=== PATIENT | female | born 2000 | race Caucasian/White ===

== ENCOUNTER 2023-05-04 20:19 | Emergency (ER) | payer OTHER ==
[2023-05-04 20:35] VITALS: TEMP 98.6
--- NOTE | 2023-05-04 20:41 | ERPHSYRPT ---
- History of Present Illness Time Seen by Provider: 05/04/23 20:27 Historian: patient Exam Limitations: no limitations Physician History: Pt states she has had intermittent sharp/crampy generalized abdominal pain for the past 24 hours with episodes lasting up to 1 second. Pt also states she has had vomiting daily for the past 8 weeks; states she is 14 weeks . Last BM was today - diarrhea without blood. Pt denies fever, chest pain, shortness of air. Pt states she is a (miscarriage at 17 weeks gestation in 2021). Allergies/Adverse Reactions: Sulfa (Sulfonamide Antibiotics) Allergy (Mild, Verified 05/04/23 20:28) Home Medications: Ondansetron ODT 4 MG [Zofran Odt 4 mg] 4 mg PO Q6-8HPRN PRN 05/04/23 [History] Pnv No.121/Iron/Folic Acid [ Multivitamin Tablet] 1 tablet PO DAILY 05/04/23 [History] - Review of Systems Constitutional: No Fever, No Chills Ears, Nose, & Throat: No Throat Pain Respiratory: No Dyspnea Cardiac: No Chest Pain Abdominal/Gastrointestinal: Abdominal Pain, Vomiting, Diarrhea Genitourinary Symptoms: No Dysuria Skin: No Rash Neurological: No Headache - Nursing Vital Signs Nursing Vital Signs: Initial Vital Signs Pulse Rate 63 05/04/23 20:32 Respiratory Rate 18 05/04/23 20:32 Blood Pressure 118/71 05/04/23 20:32 O2 Sat by Pulse Oximetry 97 05/04/23 20:32 Pain Scale Pain Intensity 2 - Physical Exam General Appearance: alert Eye Exam: PERRL/EOMI Ears, Nose, Throat Exam: pharynx normal Neck Exam: normal inspection Respiratory Exam: normal breath sounds Cardiovascular Exam: normal heart sounds Gastrointestinal/Abdomen Exam: soft, normal bowel sounds Back Exam: normal inspection Extremity Exam: No pedal edema Neurologic Exam: alert, cooperative Skin Exam: warm, dry SpO2 Interpretation: normal SpO2: 97 O2 Delivery: Room Air - Radiology Ultrasound Exam Pelvis Ultrasound: Other (tech report: normal fetus; NB=[id number].) Ordered Tests: Active Orders 24 hr Category Date Time Status Heart Tones-ED STAT Care 05/04/23 20:58 Active IV Insertion STAT Care 05/04/23 20:40 Active OB >14 WKS 1st GESTATION [US] Stat Exams 05/04/23 21:41 Taken AMYLASE Stat Lab 05/04/23 20:52 Completed CBC W DIFF Stat Lab 05/04/23 20:38 Completed CMP Stat Lab 05/04/23 20:52 Completed CULTURE,URINE Stat Lab 05/04/23 20:40 Received LIPASE Stat Lab 05/04/23 20:52 Completed UA W/RFX UR CULTURE Stat Lab 05/04/23 20:40 Completed Medication Summary Generic Name Dose Route Start Last Admin Trade Name Freq PRN Reason Stop Dose Admin Sodium Chloride 1,000 mls @ 100 mls/hr 05/04/23 20:45 05/04/23 20:43 Sodium Chloride 0.9% 1000 Ml IV 06/03/23 20:44 100 mls/hr .Q10H ALMA Administration Lab/Rad Data: Laboratory Result Diagrams 05/04/23 20:38 05/04/23 20:52 Laboratory Results 05/04/23 05/04/23 05/04/23 Range/Units 21:04 20:52 20:40 WBC (4.0-10.5) x10^3/uL RBC (4.1-5.4) x10^6/uL Hgb (12.0-16.0) g/dL Hct (35-47) % MCV (78-100) fL MCH (26-32) pg MCHC (32-36) g/dL RDW (11.5-14.0) % Plt Count (150-450) x10^3/uL MPV (7.5-11.0) fL Gran % (36.0-66.0) % Immature Gran % (Auto) (0.00-0.4) % Nucleat RBC Rel Count (0.00-0.1) % Eos # (Auto) (0-0.5) x10^3/uL Immature Gran # (Auto) (0.00-0.03) x10^3u/L Absolute Lymphs (auto) (1.0-4.6) x10^3/uL Absolute Monos (auto) (0.0-1.3) x10^3/uL Absolute Nucleated RBC (0.00-0.01) x10^3u/L Lymphocytes % (24.0-44.0) % Monocytes % (0.0-12.0) % Eosinophils % (0.00-5.0) % Basophils % (0.0-0.4) % Absolute Granulocytes (1.4-6.9) x10^3/uL Basophils # (0-0.4) x10^3/uL Sodium 139 (137-145) mmol/L Potassium 3.2 L (3.5-5.1) mmol/L Chloride 104 (98-107) mmol/L Carbon Dioxide 26 (22-30) mmol/L Anion Gap 11.0 (5-15) MEQ/L BUN 5 L (7-17) mg/dL Creatinine 0.50 L (0.52-1.04) mg/dL Estimated GFR > 60.0 ML/MIN Glucose 84 (74-106) mg/dL Calcium 9.1 (8.4-10.2) mg/dL Total Bilirubin 0.50 (0.2-1.3) mg/dL AST 18 (14-36) U/L ALT 14 (0-35) U/L Alkaline Phosphatase 45 (38-126) U/L Serum Total Protein 6.9 (6.3-8.2) g/dL Albumin 4.0 (3.5-5.0) g/dL Amylase 54 (30-110) U/L Lipase 24 (23-300) U/L Urine Color Dark Yellow A (Yellow) Urine Appearance Clear (Clear) Urine pH 5.5 (4.6-8.0) Ur Specific [place] 1.025 (1.005-1.030) Urine Protein 30 (Negative) Urine Glucose (UA) Negative (Negative) mg/dL Urine Ketones 15 A (Negative) Urine Blood Negative (Negative) Urine Nitrite Negative (Negative) Urine Bilirubin Small A (Negative) Urine Urobilinogen 1.0 A (0.2) mg/dL Ur Leukocyte Esterase Trace A (Negative) U Hyaline Cast (Auto) 3-5 A (0-2) /LPF Urine Microscopic RBC 0-2 (0-5) /HPF Urine Microscopic WBC 3-5 (0-5) /HPF Ur Epithelial Cells Few (None Seen) /HPF Urine Bacteria Rare A (None Seen) /HPF Urine Culture Reflexed YES (NO) Chlamydia DNA Probe NOT DETECTED (NEGATIVE) N.gonorrhoeae DNA Probe NOT DETECTED (NEGATIVE) 05/04/23 Range/Units 20:38 WBC 14.3 H (4.0-10.5) x10^3/uL RBC 3.87 L (4.1-5.4) x10^6/uL Hgb 12.4 (12.0-16.0) g/dL Hct 36.2 (35-47) % MCV 93.5 (78-100) fL MCH 32.0 (26-32) pg MCHC 34.3 (32-36) g/dL RDW 11.7 (11.5-14.0) % Plt Count 290 (150-450) x10^3/uL MPV 9.4 (7.5-11.0) fL Gran % 76.2 H (36.0-66.0) % Immature Gran % (Auto) 0.4 (0.00-0.4) % Nucleat RBC Rel Count 0.0 (0.00-0.1) % Eos # (Auto) 0.06 (0-0.5) x10^3/uL Immature Gran # (Auto) 0.06 H (0.00-0.03) x10^3u/L Absolute Lymphs (auto) 2.27 (1.0-4.6) x10^3/uL Absolute Monos (auto) 0.97 (0.0-1.3) x10^3/uL Absolute Nucleated RBC 0.00 (0.00-0.01) x10^3u/L Lymphocytes % 15.9 L (24.0-44.0) % Monocytes % 6.8 (0.0-12.0) % Eosinophils % 0.4 (0.00-5.0) % Basophils % 0.3 (0.0-0.4) % Absolute Granulocytes 10.89 H (1.4-6.9) x10^3/uL Basophils # 0.04 (0-0.4) x10^3/uL Sodium (137-145) mmol/L Potassium (3.5-5.1) mmol/L Chloride (98-107) mmol/L Carbon Dioxide (22-30) mmol/L Anion Gap (5-15) MEQ/L BUN (7-17) mg/dL Creatinine (0.52-1.04) mg/dL Estimated GFR ML/MIN Glucose (74-106) mg/dL Calcium (8.4-10.2) mg/dL Total Bilirubin (0.2-1.3) mg/dL AST (14-36) U/L ALT (0-35) U/L Alkaline Phosphatase (38-126) U/L Serum Total Protein (6.3-8.2) g/dL Albumin (3.5-5.0) g/dL Amylase (30-110) U/L Lipase (23-300) U/L Urine Color (Yellow) Urine Appearance (Clear) Urine pH (4.6-8.0) Ur Specific [place] (1.005-1.030) Urine Protein (Negative) Urine Glucose (UA) (Negative) mg/dL Urine Ketones (Negative) Urine Blood (Negative) Urine Nitrite (Negative) Urine Bilirubin (Negative) Urine Urobilinogen (0.2) mg/dL Ur Leukocyte Esterase (Negative) U Hyaline Cast (Auto) (0-2) /LPF Urine Microscopic RBC (0-5) /HPF Urine Microscopic WBC (0-5) /HPF Ur Epithelial Cells (None Seen) /HPF Urine Bacteria (None Seen) /HPF Urine Culture Reflexed (NO) Chlamydia DNA Probe (NEGATIVE) N.gonorrhoeae DNA Probe (NEGATIVE) - Progress Progress: unchanged Counseled pt/family regarding: lab results, diagnosis, need for follow-up Medical Desision Making - Diagnostic Testing Diagnostic test were ordered, analyzed, and reviewed by me: Yes Radiological Interpretation: Other (tech report for ultrasound) - Departure Departure Disposition: Home Clinical Impression: Abdominal pain, Condition: Stable Critical Care Time: No Referrals: DOCTOR,NO FAMILY [Primary Care Provider] - Follow up/PCP as directed Instructions: Severe Abdominal Pain, Adult (DC) Additional Instructions: Follow up with [facility] doctor tomorrow.
[2023-05-04] MEDS ORDERED: Sodium Chloride 0.9% 1000 ML 1,000 ML ONE (20:42)
[2023-05-04] MEDS ORDERED: Sodium Chloride 0.9% 1000 ML 1,000 ML IV SCH (20:45)
[2023-05-04 20:57] LABS: Absolute Neutrophil Ct (ANC) 10.89 x10^3/uL (1.4-6.9); BASOPHIL % 0.3 % (0.0-0.4); Basophil (Absolute #) 0.04 x10^3/uL (0-0.4); Eosinophil % 0.4 % (0.00-5.0); Eosinophil (Absolute #) 0.06 x10^3/uL (0-0.5); Hematocrit 36.2 % (35-47); Hemoglobin 12.4 g/dL (12.0-16.0); IMMATURE GRAN # 0.06 x10^3u/L (0.00-0.03); IMMATURE GRAN % 0.4 % (0.00-0.4); Lymphocyte (Absolute #) 2.27 x10^3/uL (1.0-4.6); Lymphocytes % 15.9 % (24.0-44.0); Mean Cell Volume 93.5 fL (78-100); Mean Corpuscular Hgb Concent. 34.3 g/dL (32-36); Mean Platelet Volume 9.4 fL (7.5-11.0); Monocyte (Absolute #) 0.97 x10^3/uL (0.0-1.3); Monocytes % 6.8 % (0.0-12.0); Neutrophil % 76.2 % (36.0-66.0); Platelet Count 290 x10^3/uL (150-450); Red Blood Count 3.87 x10^6/uL (4.1-5.4); Red Cell Distribution Width 11.7 % (11.5-14.0); White Blood Count 14.3 x10^3/uL (4.0-10.5)
[2023-05-04 21:12] LABS: Appearance Clear (Clear); Bacteria Rare /HPF (None Seen); Bilirubin Small (Negative); Blood Negative (Negative); Epithelial Cells Few /HPF (None Seen); Glucose, Urine Negative (Negative); Ketones 15 (Negative); Leukocyte Esterase Trace (Negative); Nitrite Negative (Negative); Ph 5.5 (4.6-8.0); Protein,Urine Dip 30 (Negative); RBC 0-2 /HPF (0-5); Specific Gravity 1.025 (1.005-1.030)
[2023-05-04 21:13] LABS: ADD URINE CULTURE? YES (NO)
[2023-05-04 21:18] LABS: ALKALINE PHOSPHATASE 45 U/L (38-126); AMYLASE 54 U/L (30-110); BLOOD UREA NITROGEN 5 mg/dL (7-17); CHLORIDE 104 mmol/L (98-107); Calcium 9.1 mg/dL (8.4-10.2); Carbon Dioxide 26 mmol/L (22-30); EST GLOMERULAR FILTRATION RATE > 60.0 ML/MIN; Glucose 84 mg/dL (74-106); LIPASE 24 U/L (23-300); Potassium 3.2 mmol/L (3.5-5.1); SGOT/AST 18 U/L (14-36); SGPT/ALT 14 U/L (0-35); SODIUM 139 mmol/L (137-145); Total Protein 6.9 g/dL (6.3-8.2)
[2023-05-04 22:35] LABS: CHLAMYDIA DNA NOT DETECTED (NEGATIVE); GC DNA Probe NOT DETECTED (NEGATIVE)
[2023-05-04 22:38] VITALS: O2SAT 97
[2023-05-04] MEDS ORDERED: Klor Con PO ONE ×2 (22:53→23:00)
[2023-05-04] MEDS ORDERED: PHENERGAN 25 MG PO ONE (22:59)
[2023-05-04] MEDS ORDERED: PHENERGAN 25 MG ONE (23:00)
[2023-05-04 23:04] VITALS: BP 104/57; PULSE 87; RESP 16
--- NOTE | 2023-05-05 09:29 | XRAY ---
Indication: Pain. Two-dimensional OB ultrasound performed. Comparison: None Single intrauterine with heart rate 146 BPM. measurements obtained with mean gestational age 14 weeks 2 days. Posterior placenta without abruption/previa. Impression: Single viable intrauterine measuring 14 weeks 2 days. Expected date confinement is October 31, 2023. No acute findings. Comment: Preliminary report was given.
== END 2023-05-04 23:12 | disposition home or self-care (01) ==
LOC: ED 20:19
DX: R10.84 Generalized abdominal pain (principal); O21.9 Vomiting of pregnancy, unspecified; R19.7 Diarrhea, unspecified; Z3A.14 14 weeks gestation of pregnancy
CPT/HCPCS: 36000; 36415; 76805; 80053; 81001; 82150; 83690; 85025; 87086; 87491; 87591; 99284; A9270-GY

== ENCOUNTER 2023-11-02 08:08 | Inpatient (IN) | payer OTHER ==
[2023-11-02] MEDS ORDERED: TYLENOL EXTRA STRENGTH 500 MG PO PRN (20:00)
[2023-11-02 20:39] LABS: Absolute Neutrophil Ct (ANC) 10.86 x10^3/uL (1.4-6.9); BASOPHIL % 0.5 % (0.0-0.4); Basophil (Absolute #) 0.07 x10^3/uL (0-0.4); Eosinophil % 0.7 % (0.00-5.0); Eosinophil (Absolute #) 0.11 x10^3/uL (0-0.5); Hematocrit 37.3 % (35-47); Hemoglobin 12.8 g/dL (12.0-16.0); IMMATURE GRAN # 0.47 x10^3u/L (0.00-0.03); Lymphocyte (Absolute #) 2.76 x10^3/uL (1.0-4.6); Lymphocytes % 17.9 % (24.0-44.0); Mean Cell Volume 94.2 fL (78-100); Mean Corpuscular Hemoglobin 32.3 pg (26-32); Mean Corpuscular Hgb Concent. 34.3 g/dL (32-36); Mean Platelet Volume 9.2 fL (7.5-11.0); Monocyte (Absolute #) 1.18 x10^3/uL (0.0-1.3); Monocytes % 7.6 % (0.0-12.0); Neutrophil % 70.3 % (36.0-66.0); Platelet Count 290 x10^3/uL (150-450); Red Blood Count 3.96 x10^6/uL (4.1-5.4); Red Cell Distribution Width 12.8 % (11.5-14.0); White Blood Count 15.5 x10^3/uL (4.0-10.5)
[2023-11-02 20:55] LABS: Amphetamine,Urine NEGATIVE (NEGATIVE); Barbiturate,Urine NEGATIVE (NEGATIVE); Benzodiazepine,Urine NEGATIVE (NEGATIVE); Cocaine,Urine NEGATIVE (NEGATIVE); Methadone,Urine NEGATIVE (NEGATIVE); Opiate,Urine NEGATIVE (NEGATIVE); PCP,Urine NEGATIVE (NEGATIVE); THC,Urine NEGATIVE (NEGATIVE)
[2023-11-02 20:59] LABS: Appearance Clear (Clear); Bacteria None Seen /HPF (None Seen); Bilirubin Negative (Negative); Blood Negative (Negative); Epithelial Cells Rare /HPF (None Seen); Glucose, Urine Negative (Negative); Hyaline Casts NONE SEEN /LPF (0-2); Ketones Negative (Negative); Leukocyte Esterase Negative (Negative); Nitrite Negative (Negative); Protein,Urine Dip Trace (Negative); RBC 0-2 /HPF (0-5)
[2023-11-02 21:01] LABS: ADD URINE CULTURE? NO (NO)
[2023-11-02 21:18] LABS: ABO TYPING O; Antibody Screen NEGATIVE (NEGATIVE); RH TYPING POSITIVE
[2023-11-03] MEDS ORDERED: Ephedrine Sulfate 50 MG/ML IV PRN (01:11)
[2023-11-03] MEDS: Zofran 4 MG/2 ML VIAL IV PRN (02:37)
[2023-11-03] MEDS: STADOL 2 MG IV PRN (02:37)
[2023-11-03] MEDS: Lactated Ringers 1,000 ML IV SCH (03:44)
[2023-11-03] MEDS: Lactated Ringers 1,000 ML IV ONE (05:16)
[2023-11-03] MEDS: FENTANYL 2 MCG-BUPIV 0.125%-NS 250 ML Epidur 250 ML EPIDURAL SCH (05:16)
[2023-11-03] MEDS ORDERED: PITOCIN 30 UNITS/ LR 500 ML 30 UNITS/500 ML PLAST..BAG IV SCH (06:00)
--- NOTE | 2023-11-03 08:48 | PCM.HP ---
History of Present Illness - Chief Complaint Chief Complaint: LABOR History of Present Illness: Idania JACOB is a 22 year old white female, at 40w2d gestational age who was admitted to L&D last night for cervical ripening in anticipation of induction of labor today. Her has been complicated by nicotine use and severe heartburn. She received 2 doses of Cytotec overnight and by 05:00 was unable to tolerate the discomfort and so requested epidural. The epidural was placed shortly before 07:00 and she reports good pain relief. I was called at 05:50 this morning and asked whether I wished to start pitocin. I was then also informed of frequent late decelerations of the heart tones. Upon further questioning, nursing staff did state that these were not recurrent lates and that there were both accelerations and there was normal variability. I have reviewed the monitor strips since her admission. Although there are times when there were breaks in the tracing, the heart rate pattern has been primarily Category 1 with occasions at Category 2. The areas of concern are episodic and are not clearly late decelerations. Objective: General: obese white female in no distress at this time Heart: RRR, no murmur (office exam yesterday) Lungs: CTA bilaterally (office exam yesterday) Abdomen: obese, soft, gravid, non-tender Cervix: 4-5cm, 80%, soft, posterior. The vertex is at -3 station. AROM performed - meconium fluid Extremities: no edema Assessment: 40w2d intrauterine now in active labor Plan: Continuous monitoring Pitocin augmentation as needed Pt has been counseled regarding FHR pattern and station - she understands that while we will continue to endeavor to achieve a vaginal delivery, if there are any further concerns about the FHR pattern or if there is failure to descend, then delivery may be necessary. Medications & Allergies Home Medications: Home Medication List Ondansetron ODT 4 MG [Zofran Odt 4 mg] 4 mg PO Q6-8HPRN PRN 05/04/23 [History Confirmed 11/02/23] Pnv No.121/Iron/Folic Acid [ Multivitamin Tablet] 1 tablet PO DAILY 05/04/23 [History Confirmed 11/02/23] Famotidine [Pepcid] 40 mg PO HS 11/02/23 [History Confirmed 11/02/23] Loratadine 10 mg [Claritin 10 mg] 10 mg PO DAILY 11/02/23 [History Confirmed 11/02/23] Nicotine 21 mg [Nicoderm CQ 21 MG] 21 mg TOP DAILY 11/02/23 [History Confirmed 11/02/23] Omeprazole 20 mg PO BID 11/02/23 [History Confirmed 11/02/23] Allergies/Adverse Reactions: Allergies Allergy/AdvReac Type Severity Reaction Status Date / Time Sulfa (Sulfonamide Allergy Mild Verified 11/02/23 20:49 Antibiotics) - Past Medical History Past Medical History: Yes Neurological History: No Pertinent History ENT History: No Pertinent History Cardiac History: No Pertinent History Respiratory History: Asthma Endocrine Medical History: No Pertinent History Musculoskelatal History: No Pertinent History GI Medical History: Hernia, Ulcer History: No Pertinent History Pyscho-Social History: Bipolar Reproductive Disorders: No Pertinent History Comment: hiatal hernia and stomach ulcer - Female History Expected Date of Delivery: 11/01/23 - Past Surgical History Past Surgical History: Yes Neuro Surgical History: No Pertinent History Cardiac History: No Pertinent History Respiratory Surgery: No Pertinent History GI Surgical History: Other Genitourinary Surgical Hx: No Pertinent History Musculskeletal Surgical Hx: Amputation Female Surgical History: No Pertinent History Other Surgical History: EGD scope 2019 - Social History Smoking Status: Current some day smoker How long have you smoked: 6 Exposure to second hand smoke: No Alcohol: None Drug Use: none - Social Determinants of Health Will the patient participate in the screening: Yes Do you worry about a steady place to live?: No Do you have any problems with any of the following?: No known problems In the past 12 months,have you had to go without utilities?: No Have you or anyone in your house had to go without enough: No Transportation Issues: No Has anyone in your support network made you feel unsafe?: No Does the patient want assistance with any of the above?: No - Physical Exam Vital Signs: Vital Signs - 24 hr Temp Pulse Resp BP BP Pulse Ox 11/03/23 07:00 94 H 22 106/59 98 11/03/23 06:00 98 F 89 113/59 99 11/03/23 05:00 98.3 F 91 H 98 04/12/24 04:00 73 20 99 11/03/23 03:00 72 20 121/58 97 11/03/23 02:00 20 11/03/23 01:00 97.3 F 86 20 100/57 99 11/03/23 00:00 20 11/02/23 23:00 20 11/02/23 22:00 86 20 117/58 98 11/02/23 21:09 97.6 F 88 122/59 11/02/23 21:00 97.6 F 88 20 11/02/23 20:00 97.6 F 88 20 122/59 Results - Labs Lab/Micro Results: Lab Results-Last 24 Hours 11/02/23 11/02/23 11/02/23 Range/Units 20:27 20:27 20:27 WBC 15.5 H (4.0-10.5) x10^3/uL RBC 3.96 L (4.1-5.4) x10^6/uL Hgb 12.8 (12.0-16.0) g/dL Hct 37.3 (35-47) % MCV 94.2 (78-100) fL MCH 32.3 H (26-32) pg MCHC 34.3 (32-36) g/dL RDW 12.8 (11.5-14.0) % Plt Count 290 (150-450) x10^3/uL MPV 9.2 (7.5-11.0) fL Gran % 70.3 H (36.0-66.0) % Immature Gran % (Auto) 3.0 H (0.00-0.4) % Nucleat RBC Rel Count 0.0 (0.00-0.1) % Eos # (Auto) 0.11 (0-0.5) x10^3/uL Immature Gran # (Auto) 0.47 H (0.00-0.03) x10^3u/L Absolute Lymphs (auto) 2.76 (1.0-4.6) x10^3/uL Absolute Monos (auto) 1.18 (0.0-1.3) x10^3/uL Absolute Nucleated RBC 0.00 (0.00-0.01) x10^3u/L Lymphocytes % 17.9 L (24.0-44.0) % Monocytes % 7.6 (0.0-12.0) % Eosinophils % 0.7 (0.00-5.0) % Basophils % 0.5 (0.0-0.4) % Absolute Granulocytes 10.86 H (1.4-6.9) x10^3/uL Basophils # 0.07 (0-0.4) x10^3/uL Urine Color (Yellow) Urine Appearance (Clear) Urine pH (4.6-8.0) Ur Specific [place] (1.005-1.030) Urine Protein (Negative) Urine Glucose (UA) (Negative) mg/dL Urine Ketones (Negative) Urine Blood (Negative) Urine Nitrite (Negative) Urine Bilirubin (Negative) Urine Urobilinogen (0.2) mg/dL Ur Leukocyte Esterase (Negative) U Hyaline Cast (Auto) (0-2) /LPF Urine Microscopic RBC (0-5) /HPF Urine Microscopic WBC (0-5) /HPF Ur Epithelial Cells (None Seen) /HPF Urine Bacteria (None Seen) /HPF Urine Culture Reflexed (NO) Urine Opiates Level NEGATIVE (NEGATIVE) Ur Methadone NEGATIVE (NEGATIVE) Urine Barbiturates NEGATIVE (NEGATIVE) Ur Phencyclidine (PCP) NEGATIVE (NEGATIVE) Urine Amphetamine NEGATIVE (NEGATIVE) U Benzodiazepine Level NEGATIVE (NEGATIVE) Urine Cocaine NEGATIVE (NEGATIVE) Urine Marijuana (THC) NEGATIVE (NEGATIVE) ABO Group O Rh Factor POSITIVE Antibody Screen NEGATIVE (NEGATIVE) 11/02/23 Range/Units 20:27 WBC (4.0-10.5) x10^3/uL RBC (4.1-5.4) x10^6/uL Hgb (12.0-16.0) g/dL Hct (35-47) % MCV (78-100) fL MCH (26-32) pg MCHC (32-36) g/dL RDW (11.5-14.0) % Plt Count (150-450) x10^3/uL MPV (7.5-11.0) fL Gran % (36.0-66.0) % Immature Gran % (Auto) (0.00-0.4) % Nucleat RBC Rel Count (0.00-0.1) % Eos # (Auto) (0-0.5) x10^3/uL Immature Gran # (Auto) (0.00-0.03) x10^3u/L Absolute Lymphs (auto) (1.0-4.6) x10^3/uL Absolute Monos (auto) (0.0-1.3) x10^3/uL Absolute Nucleated RBC (0.00-0.01) x10^3u/L Lymphocytes % (24.0-44.0) % Monocytes % (0.0-12.0) % Eosinophils % (0.00-5.0) % Basophils % (0.0-0.4) % Absolute Granulocytes (1.4-6.9) x10^3/uL Basophils # (0-0.4) x10^3/uL Urine Color Yellow (Yellow) Urine Appearance Clear (Clear) Urine pH 6.0 (4.6-8.0) Ur Specific [place] 1.020 (1.005-1.030) Urine Protein Trace A (Negative) Urine Glucose (UA) Negative (Negative) mg/dL Urine Ketones Negative (Negative) Urine Blood Negative (Negative) Urine Nitrite Negative (Negative) Urine Bilirubin Negative (Negative) Urine Urobilinogen 1.0 A (0.2) mg/dL Ur Leukocyte Esterase Negative (Negative) U Hyaline Cast (Auto) NONE SEEN (0-2) /LPF Urine Microscopic RBC 0-2 (0-5) /HPF Urine Microscopic WBC 3-5 (0-5) /HPF Ur Epithelial Cells Rare (None Seen) /HPF Urine Bacteria None Seen (None Seen) /HPF Urine Culture Reflexed NO (NO) Urine Opiates Level (NEGATIVE) Ur Methadone (NEGATIVE) Urine Barbiturates (NEGATIVE) Ur Phencyclidine (PCP) (NEGATIVE) Urine Amphetamine (NEGATIVE) U Benzodiazepine Level (NEGATIVE) Urine Cocaine (NEGATIVE) Urine Marijuana (THC) (NEGATIVE) ABO Group Rh Factor Antibody Screen (NEGATIVE) - Other Procedures and Tests Respiratory Therapy 11/02/23 21:31 Smoking Cessation Education ONCE
[2023-11-03] MEDS ORDERED: XYLOCAINE 1% HCL 20 ML MDV IJ PRN (08:58)
[2023-11-03 11:06] LABS: Appearance Clear (Clear); Bacteria None Seen /HPF (None Seen); Bilirubin Negative (Negative); Blood Negative (Negative); Epithelial Cells None Seen /HPF (None Seen); Glucose, Urine Negative (Negative); Hyaline Casts NONE SEEN /LPF (0-2); Ketones Negative (Negative); Leukocyte Esterase Negative (Negative); Nitrite Negative (Negative); Protein,Urine Dip Trace (Negative); RBC 0-2 /HPF (0-5); Specific Gravity 1.015 (1.005-1.030); Urobilinogen 0.2 mg/dL (0.2); WBC 0-2 /HPF (0-5)
[2023-11-03 11:07] LABS: ADD URINE CULTURE? NO (NO)
[2023-11-03] MEDS: PITOCIN 30 UNITS/ LR 500 ML 30 UNITS/500 ML PLAST..BAG IV SCH (13:34)
[2023-11-03] MEDS ORDERED: SUBLIMAZE 100 MCG/2 ML ONE (15:20)
[2023-11-03] MEDS ORDERED: Reglan 10 MG/2 ML ONE (15:26)
[2023-11-03] MEDS: Pepcid 20 MG VIAL IV SCH (15:32)
[2023-11-03] MEDS: CEFAZOLIN 2 GM-D5W BAG** 2 GM/50 ML ML IV SCH (15:32)
[2023-11-03] MEDS: Reglan 10 MG/2 ML IV SCH (15:32)
[2023-11-03] MEDS: SOD CITRATE-CITRIC ACID SOLN PO SCH (15:32)
[2023-11-03 15:33] LABS: Hematocrit 38.4 % (35-47); Hemoglobin 12.8 g/dL (12.0-16.0); Mean Cell Volume 96.7 fL (78-100); Mean Corpuscular Hemoglobin 32.2 pg (26-32); Mean Corpuscular Hgb Concent. 33.3 g/dL (32-36); Mean Platelet Volume 9.1 fL (7.5-11.0); Platelet Count 260 x10^3/uL (150-450); Red Blood Count 3.97 x10^6/uL (4.1-5.4); Red Cell Distribution Width 12.9 % (11.5-14.0); White Blood Count 19.3 x10^3/uL (4.0-10.5)
[2023-11-03] MEDS ORDERED: DEXMEDETOMIDINE 80 MCG/20ML-NS IV ONE (15:49)
[2023-11-03 15:57] LABS: INR 0.88 (0.8-3.0); PROTIME 9.7 SECONDS (9.4-12.5); PTT 24.5 SECONDS (25.1-36.5)
[2023-11-03] MEDS ORDERED: DIPRIVAN 200 MG/20 ML IV ONE (16:00)
[2023-11-03] MEDS ORDERED: Quelicin Fliptop 200 MG/10 ML ONE (16:06)
[2023-11-03] MEDS ORDERED: PHENYLEPHRINE HCL ONE (16:07)
[2023-11-03] MEDS ORDERED: Pitocin 10 UNITS/ML ONE ×2 (16:09→16:33)
[2023-11-03] MEDS ORDERED: Lactated Ringers 1,000 ML IV ONE (16:32)
[2023-11-03] MEDS ORDERED: Ephedrine Sulfate 50 MG/ML ONE (16:36)
[2023-11-03] MEDS ORDERED: XYLOCAINE 2%/Epi 1:200000 20ML VIAL MPF ONE (16:49)
[2023-11-03] MEDS ORDERED: Marcaine 0.5%/Epinephrine 10 ML ONE (16:52)
[2023-11-03] MEDS ORDERED: Decadron 4 MG INJ ONE (17:13)
[2023-11-03] MEDS ORDERED: Zofran 4 MG/2 ML VIAL ONE (17:13)
[2023-11-03] MEDS ORDERED: TORAdol 30 mg Injection ONE (17:29)
[2023-11-03] MEDS ORDERED: Nubain 10 MG/ML IV PRN (17:37)
[2023-11-03] MEDS ORDERED: Zofran 4 MG/2 ML VIAL IV PRN (17:37)
[2023-11-03] MEDS ORDERED: DEMEROL 50 MG IV PRN ×2 (17:37)
[2023-11-03] MEDS: Dextrose 5%-Lr IV Solution 1000 ML 1,000 ML IV SCH (19:55)
[2023-11-03] MEDS: VENTOLIN COMMON CANISTER IH PRN (20:41)
[2023-11-03] MEDS: PERCOCET TABLET 5/325MG PO PRN (20:46)
[2023-11-03] MEDS: TORAdol 30 mg Injection IV PRN (23:06)
[2023-11-04] MEDS: Mylicon 80MG PO PRN (02:47)
[2023-11-04 06:25] LABS: Absolute Neutrophil Ct (ANC) 22.47 x10^3/uL (1.4-6.9); BASOPHIL % 0.3 % (0.0-0.4); Basophil (Absolute #) 0.08 x10^3/uL (0-0.4); Eosinophil (Absolute #) 0.01 x10^3/uL (0-0.5); Hematocrit 32.8 % (35-47); Hemoglobin 11.3 g/dL (12.0-16.0); IMMATURE GRAN # 0.37 x10^3u/L (0.00-0.03); IMMATURE GRAN % 1.4 % (0.00-0.4); Lymphocytes % 5.7 % (24.0-44.0); Mean Cell Volume 94.3 fL (78-100); Mean Corpuscular Hemoglobin 32.5 pg (26-32); Mean Corpuscular Hgb Concent. 34.5 g/dL (32-36); Mean Platelet Volume 9.6 fL (7.5-11.0); Monocyte (Absolute #) 1.67 x10^3/uL (0.0-1.3); Monocytes % 6.4 % (0.0-12.0); Neutrophil % 86.2 % (36.0-66.0); Platelet Count 282 x10^3/uL (150-450); Red Blood Count 3.48 x10^6/uL (4.1-5.4)
[2023-11-04 06:52] LABS: White Blood Count 26.1 x10^3/uL (4.0-10.5)
[2023-11-04] MEDS: Pepcid 20 MG PO SCH (07:33)
--- NOTE | 2023-11-04 09:39 | PCM.NOTE ---
Date and Time: 11/04/23932 Subjective Assessment: Subjective: Sore, but no other complaints. Normal lochia. Objective: Afebrile, VSS Abdomen: soft, obese, moderate tenderness. fundus not palpable Incision: C/D/I Extremities: no calf tenderness. Assessment: POD#1, status post primary LTCS for failure to progress and non-reassuring FHTs Elevated WBC's noted on am labs (lab review does show WBC's were also elevated at admission and preop) - there are no signs or symptoms of infection. Plan: Continue postop care per protocol and orders Recheck CBC tomorrow morning Objective Data Vital Signs: Vital Signs - 24 hr Temp Pulse Resp BP BP BP Pulse Ox 11/04/23 08:00 99 H 20 130/60 99 11/04/23 07:24 91 H 20 98 11/04/23 06:00 98.6 F 101 H 19 140/73 99 11/04/23 05:00 96 11/04/23 04:00 98 11/04/23 03:00 99 11/04/23 02:36 97.8 F 101 H 18 147/65 97 11/04/23 02:00 96 11/04/23 01:00 99 11/04/23 00:00 98 11/03/23 23:00 97 11/03/23 22:00 97.8 F 102 H 18 112/66 98 11/03/23 21:00 96 11/03/23 20:49 104 H 18 116/57 95 11/03/23 20:41 100 H 18 95 11/03/23 20:34 110 H 18 119/65 97 11/03/23 20:19 104 H 19 115/61 98 11/03/23 20:04 97 H 16 113/58 98 11/03/23 20:00 98 11/03/23 19:50 97.4 F 97 H 18 112/66 98 11/03/23 19:40 97.4 F 99 H 18 131/67 99 11/03/23 19:20 94 H 17 118/68 100 11/03/23 19:00 97.6 F 92 H 18 129/68 100 11/03/23 18:51 97.7 F 95 H 18 120/59 100 11/03/23 18:30 97.7 F 105 H 18 126/62 100 11/03/23 18:15 97.7 F 96 H 16 125/67 98 11/03/23 18:00 97.7 F 96 H 16 119/65 98 11/03/23 15:45 98.1 F 95 H 18 120/56 98 11/03/23 15:30 100 H 18 121/57 11/03/23 15:15 95 H 18 136/79 96 11/03/23 15:00 84 18 97 11/03/23 14:45 98.1 F 95 H 18 98 11/03/23 14:30 85 18 121/66 11/03/23 14:15 102 H 18 126/66 11/03/23 14:00 95 H 18 120/56 120/56 11/03/23 13:30 80 18 116/59 98 11/03/23 13:00 98.1 F 92 H 18 146/57 99 11/03/23 12:30 77 18 126/64 98 11/03/23 12:00 78 18 115/67 115/67 98 11/03/23 11:30 75 18 129/81 99 11/03/23 11:00 71 18 129/61 97 11/03/23 10:33 79 18 138/68 98 11/03/23 10:30 79 18 138/68 98 11/03/23 10:00 70 18 132/84 99 Pain Assessment - Last Documented Pain Intensity [Lower] 7 Pain Intensity 10 Pain Scale Used 0-10 Pain Scale Intake and Output: Intake & Output 11/01/23 11/02/23 11/03/23 11/04/23 11:59 11:59 11:59 11:59 Intake Total 2120 2430 Output Total 120 2513 Balance 1999 Weight 110.223 kg 110.223 kg Lab Results: Lab Results-Last 24 Hours 11/03/23 11/03/23 11/03/23 Range/Units 15:15 15:15 15:33 WBC 19.3 H (4.0-10.5) x10^3/uL RBC 3.97 L (4.1-5.4) x10^6/uL Hgb 12.8 (12.0-16.0) g/dL Hct 38.4 (35-47) % MCV 96.7 (78-100) fL MCH 32.2 H (26-32) pg MCHC 33.3 (32-36) g/dL RDW 12.9 (11.5-14.0) % Plt Count 260 (150-450) x10^3/uL MPV 9.1 (7.5-11.0) fL Gran % (36.0-66.0) % Immature Gran % (Auto) (0.00-0.4) % Nucleat RBC Rel Count (0.00-0.1) % Eos # (Auto) (0-0.5) x10^3/uL Immature Gran # (Auto) (0.00-0.03) x10^3u/L Absolute Lymphs (auto) (1.0-4.6) x10^3/uL Absolute Monos (auto) (0.0-1.3) x10^3/uL Absolute Nucleated RBC (0.00-0.01) x10^3u/L Lymphocytes % (24.0-44.0) % Monocytes % (0.0-12.0) % Eosinophils % (0.00-5.0) % Basophils % (0.0-0.4) % Absolute Granulocytes (1.4-6.9) x10^3/uL Basophils # (0-0.4) x10^3/uL PT 9.7 (9.4-12.5) SECONDS INR 0.88 (0.8-3.0) APTT 24.5 L (25.1-36.5) SECONDS Urine Color (Yellow) Urine Appearance (Clear) Urine pH (4.6-8.0) Ur Specific [place] (1.005-1.030) Urine Protein (Negative) Urine Glucose (UA) (Negative) mg/dL Urine Ketones (Negative) Urine Blood (Negative) Urine Nitrite (Negative) Urine Bilirubin (Negative) Urine Urobilinogen (0.2) mg/dL Ur Leukocyte Esterase (Negative) U Hyaline Cast (Auto) (0-2) /LPF Urine Microscopic RBC (0-5) /HPF Urine Microscopic WBC (0-5) /HPF Ur Epithelial Cells (None Seen) /HPF Urine Bacteria (None Seen) /HPF Urine Culture Reflexed (NO) Rh Factor POSITIVE 11/03/23 11/04/23 Range/Units Unknown 05:12 WBC 26.1 H* (4.0-10.5) x10^3/uL RBC 3.48 L (4.1-5.4) x10^6/uL Hgb 11.3 L (12.0-16.0) g/dL Hct 32.8 L (35-47) % MCV 94.3 (78-100) fL MCH 32.5 H (26-32) pg MCHC 34.5 (32-36) g/dL RDW 13.0 (11.5-14.0) % Plt Count 282 (150-450) x10^3/uL MPV 9.6 (7.5-11.0) fL Gran % 86.2 H (36.0-66.0) % Immature Gran % (Auto) 1.4 H (0.00-0.4) % Nucleat RBC Rel Count 0.0 (0.00-0.1) % Eos # (Auto) 0.01 (0-0.5) x10^3/uL Immature Gran # (Auto) 0.37 H (0.00-0.03) x10^3u/L Absolute Lymphs (auto) 1.50 (1.0-4.6) x10^3/uL Absolute Monos (auto) 1.67 H (0.0-1.3) x10^3/uL Absolute Nucleated RBC 0.00 (0.00-0.01) x10^3u/L Lymphocytes % 5.7 L (24.0-44.0) % Monocytes % 6.4 (0.0-12.0) % Eosinophils % 0.0 (0.00-5.0) % Basophils % 0.3 (0.0-0.4) % Absolute Granulocytes 22.47 H (1.4-6.9) x10^3/uL Basophils # 0.08 (0-0.4) x10^3/uL PT (9.4-12.5) SECONDS INR (0.8-3.0) APTT (25.1-36.5) SECONDS Urine Color Yellow (Yellow) Urine Appearance Clear (Clear) Urine pH 8.0 (4.6-8.0) Ur Specific [place] 1.015 (1.005-1.030) Urine Protein Trace A (Negative) Urine Glucose (UA) Negative (Negative) mg/dL Urine Ketones Negative (Negative) Urine Blood Negative (Negative) Urine Nitrite Negative (Negative) Urine Bilirubin Negative (Negative) Urine Urobilinogen 0.2 (0.2) mg/dL Ur Leukocyte Esterase Negative (Negative) U Hyaline Cast (Auto) NONE SEEN (0-2) /LPF Urine Microscopic RBC 0-2 (0-5) /HPF Urine Microscopic WBC 0-2 (0-5) /HPF Ur Epithelial Cells None Seen (None Seen) /HPF Urine Bacteria None Seen (None Seen) /HPF Urine Culture Reflexed NO (NO) Rh Factor Multi-Disciplinary Progress Notes: Multi-Disciplinary Progress Notes 11/03/23 16:39 Respiratory Note by Ayde Zhao Baby born via . Baby crying and was dusky.. HR 120. Baby dried and stimulated. at 1 minute is 8. Baby pinked up and continues to cry. at 5 minutes is 9. No RT interventions needed Initialized on 11/03/23 16:39 - END OF NOTE
[2023-11-04] MEDS: Protonix 40MG Tablet PO SCH (10:19)
[2023-11-04] MEDS: Docusate Sodium 100 MG PO SCH (10:19)
[2023-11-04] MEDS: FERREX 150 PO SCH (10:19)
[2023-11-04] MEDS: Adacel Vial IM ONE (10:23)
[2023-11-04 11:58] LABS: Slide Review 1 YES
[2023-11-04] MEDS: LANSINOH 40 GM TOP PRN (13:26)
[2023-11-04] MEDS: NORCO 5/325 MG PO PRN (22:10)
[2023-11-04] MEDS: MOTRIN 400 MG PO PRN (22:12)
[2023-11-04] MEDS: Dulcolax 10 MG SUPP PR PRN (23:48)
[2023-11-04] MEDS: TYLENOL EXTRA STRENGTH 500 MG PO PRN (23:48)
[2023-11-05 03:24] LABS: Absolute Neutrophil Ct (ANC) 13.93 x10^3/uL (1.4-6.9); BASOPHIL % 0.4 % (0.0-0.4); Basophil (Absolute #) 0.07 x10^3/uL (0-0.4); Eosinophil % 0.5 % (0.00-5.0); Hematocrit 31.5 % (35-47); Hemoglobin 10.6 g/dL (12.0-16.0); IMMATURE GRAN # 0.37 x10^3u/L (0.00-0.03); Lymphocyte (Absolute #) 3.27 x10^3/uL (1.0-4.6); Lymphocytes % 17.4 % (24.0-44.0); Mean Cell Volume 97.8 fL (78-100); Mean Corpuscular Hemoglobin 32.9 pg (26-32); Mean Corpuscular Hgb Concent. 33.7 g/dL (32-36); Mean Platelet Volume 9.1 fL (7.5-11.0); Monocyte (Absolute #) 1.05 x10^3/uL (0.0-1.3); Monocytes % 5.6 % (0.0-12.0); Neutrophil % 74.1 % (36.0-66.0); Platelet Count 238 x10^3/uL (150-450); Red Blood Count 3.22 x10^6/uL (4.1-5.4); Red Cell Distribution Width 13.3 % (11.5-14.0); White Blood Count 18.8 x10^3/uL (4.0-10.5)
[2023-11-05 09:16] VITALS: TEMP 98.1
--- NOTE | 2023-11-05 10:45 | PCM.DS ---
Discharge Summary Date of Admission: 11/03/23 08:08 Date of Discharge: Subjective: Idania Shirley is a 22 yo white female who was admitted on evening, November 02, 2023 for cervical ripening in anticipation of induction of labor. She did transition in spontaneous labor, but required pitocin augmentation after fa ilure to progress beyond 8cm. Pitocin did achieve a dilation to 9cm, however, had to discontinue due to non-reassuring heart tones. She was delivered by section without complication. Her course has been uncomplicated and she requests discharge home on postop day #2. An elevated WBC was noted at admission which did increase to 19 preoperatively and to 26 on the morning after surgery. The WBC has dropped to 18 today and she has had no signs or symptoms of infection throughout her hospitalization. She has no complaints at this time and states that she feels much better today than yesterday. She is ambulating without difficulty. Normal lochia. Objective: Afebrile, VSS Abdomen: soft, obese, mild tenderness. The fundus is not palpable. Incision: C/D/I Extremities: no calf tenderness. no edema. Assessment: POD #2, s/p primary LTCS Plan: OK for discharge home today Follow up later this week for staple removal Follow up in 6 weeks for exam Admitting Physician: HAWK WIGGINS MD Consults: Consults on Case 11/03/23 07:00 Notify Anesthesia Provider PRN 11/03/23 15:15 Notify Physician OF ADMISSION 11/03/23 17:38 Notify Anesthesia Provider PRN 11/04/23 08:00 Navigation ONCE Primary Care Provider: RUTH BIRMINGHAM DO Allergies Allergies Sulfa (Sulfonamide Antibiotics) Allergy (Mild, Verified 11/02/23 20:49) unsure of reaction Hospital Summary - Vitals & Intake/Output Vital Signs: Vital Signs Temperature 98.1 F 11/05/23 09:16 Pulse Rate 95 H 11/05/23 09:16 Respiratory Rate 16 11/05/23 09:16 Blood Pressure 120/57 11/05/23 09:16 O2 Sat by Pulse Oximetry 98 11/05/23 09:16 Intake & Output: Intake & Output 11/02/23 11/03/23 11/04/23 11/05/23 11:59 11:59 11:59 11:59 Intake Total 9462 1969 Output Total 070 2217 Balance 1999 Weight 110.223 kg 110.223 kg - Lab Result Diagrams: 11/05/23 03:22 Lab Results-Last 24 Hrs: Lab Results-Last 24 Hours 11/04/23 11/05/23 Range/Units 05:12 03:22 WBC 18.8 H (4.0-10.5) x10^3/uL RBC 3.22 L (4.1-5.4) x10^6/uL Hgb 10.6 L (12.0-16.0) g/dL Hct 31.5 L (35-47) % MCV 97.8 (78-100) fL MCH 32.9 H (26-32) pg MCHC 33.7 (32-36) g/dL RDW 13.3 (11.5-14.0) % Plt Count 238 (150-450) x10^3/uL MPV 9.1 (7.5-11.0) fL Gran % 74.1 H (36.0-66.0) % Immature Gran % (Auto) 2.0 H (0.00-0.4) % Nucleat RBC Rel Count 0.0 (0.00-0.1) % Eos # (Auto) 0.10 (0-0.5) x10^3/uL Immature Gran # (Auto) 0.37 H (0.00-0.03) x10^3u/L Absolute Lymphs (auto) 3.27 (1.0-4.6) x10^3/uL Absolute Monos (auto) 1.05 (0.0-1.3) x10^3/uL Absolute Nucleated RBC 0.00 (0.00-0.01) x10^3u/L Lymphocytes % 17.4 L (24.0-44.0) % Monocytes % 5.6 (0.0-12.0) % Eosinophils % 0.5 (0.00-5.0) % Basophils % 0.4 (0.0-0.4) % Absolute Granulocytes 13.93 H (1.4-6.9) x10^3/uL Basophils # 0.07 (0-0.4) x10^3/uL Slides for Path Review YES Micro Results-Entire Visit: Microbiology 11/03/23 08:35 Urine Culture - Final Catherized NO GROWTH - Procedures and Test Procedures and Tests throughout Hospitalization: Therapy Orders & Screens 11/02/23 21:31 Smoking Cessation Education ONCE Comment: Diagnosis: LABOR Smoking Status: Current some day smoker How long have you smoked: 6 Have you smoked in the past 12 months: Yes Do you dip or chew tobacco: No If,Former Smoker,when did you quit: last month, does vap 11/03/23 16:08 Standby STAT Comment: Diagnosis: LABOR 11/03/23 21:18 Respiratory Therapy Assessment DAILY Comment: Diagnosis: LABOR 11/04/23 10:30 Incentive Spirometry PRN Comment: Diagnosis: LABOR - Discharge Disposition: Home, Self-Care Condition: Stable Prescriptions: No Action Ondansetron ODT 4 MG [Zofran Odt 4 mg] 4 mg PO Q6-8HPRN PRN PRN Reason: vomiting Pnv No.121/Iron/Folic Acid [ Multivitamin Tablet] 1 tablet PO DAILY Nicotine 21 mg [Nicoderm CQ 21 MG] 21 mg TOP DAILY Omeprazole 20 mg PO BID Loratadine 10 mg [Claritin 10 mg] 10 mg PO DAILY Famotidine [Pepcid] 40 mg PO HS Follow up with: RUTH BIRMINGHAM DO [Primary Care Provider] -
[2023-11-05] MEDS ORDERED: PERCOCET TABLET 5/325MG PO PRN (11:40)
--- NOTE | 2023-11-05 12:06 | PCM.NOTE ---
Date and Time: 11/05/23 1203 Subjective Assessment: Patient discharged, however, due to computer issue, I was unable to send a prescription for Percocet. Dr Nieves in the ER was kind enough to send the prescription to the [facility] pharmacy in [place] for me. A 3 day supply was sent. Objective Data Vital Signs: Vital Signs - 24 hr Temp Pulse Resp BP BP Pulse Ox 11/05/23 11:22 102 H 16 98 11/05/23 09:16 98.1 F 95 H 16 120/57 98 11/05/23 07:48 97 H 16 98 11/05/23 03:13 97.6 F 88 17 123/72 98 11/04/23 22:00 98.3 F 85 19 125/60 99 11/04/23 19:14 98 H 16 98 11/04/23 15:54 97.6 F 88 18 137/60 97 Pain Assessment - Last Documented Pain Intensity [Lower] 7 Pain Intensity 4 Pain Scale Used 0-10 Pain Scale Intake and Output: Intake & Output 11/03/23 11/04/23 11/05/23 11/06/23 11:59 11:59 11:59 11:59 Intake Total 2120 2430 Output Total 120 2513 Balance 1999 Weight 110.223 kg 110.223 kg Lab Results: Lab Results-Last 24 Hours 11/05/23 Range/Units 03:22 WBC 18.8 H (4.0-10.5) x10^3/uL RBC 3.22 L (4.1-5.4) x10^6/uL Hgb 10.6 L (12.0-16.0) g/dL Hct 31.5 L (35-47) % MCV 97.8 (78-100) fL MCH 32.9 H (26-32) pg MCHC 33.7 (32-36) g/dL RDW 13.3 (11.5-14.0) % Plt Count 238 (150-450) x10^3/uL MPV 9.1 (7.5-11.0) fL Gran % 74.1 H (36.0-66.0) % Immature Gran % (Auto) 2.0 H (0.00-0.4) % Nucleat RBC Rel Count 0.0 (0.00-0.1) % Eos # (Auto) 0.10 (0-0.5) x10^3/uL Immature Gran # (Auto) 0.37 H (0.00-0.03) x10^3u/L Absolute Lymphs (auto) 3.27 (1.0-4.6) x10^3/uL Absolute Monos (auto) 1.05 (0.0-1.3) x10^3/uL Absolute Nucleated RBC 0.00 (0.00-0.01) x10^3u/L Lymphocytes % 17.4 L (24.0-44.0) % Monocytes % 5.6 (0.0-12.0) % Eosinophils % 0.5 (0.00-5.0) % Basophils % 0.4 (0.0-0.4) % Absolute Granulocytes 13.93 H (1.4-6.9) x10^3/uL Basophils # 0.07 (0-0.4) x10^3/uL
[2023-11-05] MEDS: NORCO 5/325 MG PO ONE (12:25)
[2023-11-06 06:08] VITALS: O2SAT 98
[2023-11-06 10:07] VITALS: BP 122/58; PULSE 96; RESP 16
--- NOTE | 2023-11-06 10:44 | OP ---
SURGERY DATE/TIME: 11/03/2023 1545 PREOPERATIVE DIAGNOSES: 1) 40 weeks 2 day gestational age intrauterine . 2) Failure to progress. 3) Nonreassuring heart tones. POSTOPERATIVE DIAGNOSIS: 1) 40 weeks 2 day gestational age intrauterine . 2) Viable male . weight is 3160 gm (6 pounds 15 ounces). 3) 8 at 1 minute and 9 at 5 minutes. PROCEDURES: Primary low transverse section. SURGEON: Stalin Rae M.D. ANESTHESIA: General endotracheal anesthesia (failed epidural anesthesia). QUANTITATIVE BLOOD LOSS: 500 cc. OPERATIVE FINDINGS: Viable male infant. Vertex presentation. Nuchal cord x1. COMPLICATIONS: None. DESCRIPTION OF PROCEDURE AND FINDINGS: The patient was brought to the operating room suite and epidural anesthesia was increased to anesthetic level. Testing revealed minimal discomfort, however, skin incision was made resulting in immediate sensation of pain. We stopped the incision and the decision was made to proceed to general endotracheal anesthesia. Please see the anesthesiologist notes regarding the details. Once the endotracheal tube was secured, we proceeded with all deliver speed to complete the section delivery. The incision was carried down to the level of the fascia which was opened in a transverse direction using sharp resection with Rollins scissors. The fascia was then dissected off of the underlying rectus muscles using both sharp and blunt dissection. The recti was at midline and the peritoneum was carefully entered. The peritoneal incision was then extended using blunt dissection. The bladder blade was placed to retract the bladder inferiorly and a bladder flap was created. The bladder blade was then replaced and uterine incision made. The uterine incision was extended upwards and laterally using blunt dissection. Light meconium stained fluid was noted. The vertex was elevated out of the pelvis and the infant delivered. A nuchal cord x1 was reduced before delivery of the shoulders. The oropharynx and nares were suctioned on the operative field. The umbilical cord was doubly clamped and cut. The was handed over to awaiting OB personnel. Cord blood was obtained and the placenta was delivered spontaneously. The uterus was exteriorized and then explored to remove any remaining fragments of membrane. Mild uterine atony did respond to Pitocin and uterine massage. The uterine incision was then closed using 0 chromic suture in a running and locking fashion. A few small areas of bleeding were noted and were easily controlled using three separate 0 chromic sutures in a figure-of-8 fashion. Excellent hemostasis was now noted. The bladder flap was then closed using 2-0 Monocryl suture in a running fashion. The cul-de-sac was suctioned and there were no clots. The uterus was then returned to the abdominal cavity. The gutters were cleared from any clots and blood and then the peritoneum was closed using 2-0 Monocryl suture in a running fashion. The recti were then re-approximated using 2-0 Vicryl suture in a running fashion. The fascia was then closed with two separate 0 Vicryl sutures in a running fashion. Subcutaneous tissues were irrigated and the Alice fascia was closed with 2-0 Vicryl suture in a running fashion. The skin was re-approximated with surgical steel vickie. Sterile dressing was applied. General endotracheal anesthesia was then reversed and the patient was taken to the recovery room in stable and satisfactory condition having tolerated the procedure well. All sponge, instrument and needle counts were correct.
--- NOTE | 2023-11-06 11:21 | PROG NOTE ---
DATE: 11/04/2023929 SUBJECTIVE: The patient is sore but has no other complaints. Normal lochia. OBJECTIVE: Pulse 99, respirations 20, blood pressure 130/60. She is afebrile. PHYSICAL EXAMINATION: ABDOMEN: Soft, obese, moderate tenderness. Uterine fundus was not palpable. INCISION: Clean, dry, intact. EXTREMITIES: There is no calf tenderness. LAB DATA AND TESTS: Lab results from this morning revealed hemoglobin of 11 and hematocrit of 32.8. White blood cell count was elevated at 26.1. PLT count 282,000. Elevated white blood cell count on admission as well as preoperatively was also noted. ASSESSMENT: 1) Postoperative day #1. Status post primary low transverse section. 2) Elevated white blood cell count PLAN: 1) Continue routine postoperative care. 2) Recheck CBC tomorrow morning.
== END 2023-11-06 13:15 | disposition home or self-care (01) | DRG 788 ==
LOC: OB 08:08 → OBSVTOIN 11-03 08:08 → OB 11-03 08:09
PROVIDERS: ADMIT Obstetrics & Gynecology; ATTEND Obstetrics & Gynecology
PROC: 10D00Z1 Extraction of Products of Conception, Low, Open Approach (ICD-10-PCS; principal; 2023-11-03)
DX: O36.8390 Maternal care for abnormalities of the fetal heart rate or rhythm, unspecified trimester, not applicable or unspecified (principal); O69.81X0 Labor and delivery complicated by cord around neck, without compression, not applicable or unspecified; O66.40 Failed trial of labor, unspecified; Z3A.40 40 weeks gestation of pregnancy; Z37.0 Single live birth; D72.829 Elevated white blood cell count, unspecified
CPT/HCPCS: 36415; 59426; 64488; 76937; 76942; 80307; 81001; 81002; 85025; 85027; 85610; 85730; 86850; 86900; 86901; 87086; 90471; 90715; 94640; 94799; G0378; G0379; J0330; J0595; J0690; J1100; J1885; J2371; J2405; J2590; J2704; J3010; L0625; A9270-GY